=== PATIENT | female | born 1935 | race Caucasian/White ===

== ENCOUNTER → 2016-08-17 | Outpatient (CLI) | payer MEDICARE, MEDICAID ==
[~2016-08-17] MED LIST: CALC667C4 PO; DIGO125T82 PO; IOHEXOL-350 100 ML BOTTLE ONE; LEVO125T8 PO; METO-298 PO; OMEP20CA10 PO; PENT400T2 PO; PROVASTATIN SODIUM PO; SODIUM CHLORIDE 0.9% 10ML VIAL ONE; [UNRECOGNIZED DRUG - OTHER] PO
== END | disposition home or self-care (01) ==
LOC: CT 07:33
PROVIDERS: ATTEND Internal Medicine Cardiovascular Disease
DX: I70.213 Atherosclerosis of native arteries of extremities with intermittent claudication, bilateral legs (principal); M48.56XA Collapsed vertebra, not elsewhere classified, lumbar region, initial encounter for fracture; M85.88 Other specified disorders of bone density and structure, other site
CPT/HCPCS: 75635; A4216; Q9967

== ENCOUNTER 2017-06-03 11:18 | Emergency (ER) | payer MEDICARE, MEDICAID ==
[~2017-06-03] VITALS: Ht 152.4 cm; Wt 45.0 kg
[~2017-06-03 11:18] MED LIST changes: -CALC667C4 PO; -IOHEXOL-350 100 ML BOTTLE ONE; +LACT1CAP77 PO; -METO-298 PO; +METO-385 PO; -SODIUM CHLORIDE 0.9% 10ML VIAL ONE
[2017-06-03 14:03] LABS: BASOPHILS % 1.3 % (0.0-2.0); EOSINOPHILS % 8.2 % (0.0-5.0); HEMATOCRIT. 31.8 % (36.0-48.0); HEMOGLOBIN. 10.4 g/dL (12.0-16.0); LYMPHOCYTES % 13.9 % (20.0-50.0); MEAN CORPUSCULAR HEMOGLOBIN 30.3 pg (28.0-32.0); MEAN CORPUSCULAR VOLUME 92.8 fL (81.0-99.0); MEAN PLATELET VOLUME 9.9 fl (7.4-10.4); MONOCYTES % 9.6 % (2.0-8.0); RED BLOOD CELL COUNT 3.43 mill/uL (4.2-5.4); RED CELL DISTRIBUTION WIDTH 19.2 % (11.6-14.6)
[2017-06-03 14:12] LABS: PLATELET 47 x1000/uL (130-400)
[2017-06-03 15:23] LABS: PLATELET ESTIMATE MARKEDLY DECREASED
[2017-06-03 18:02] VITALS: BP 114/84
[2017-06-04] MEDS ORDERED: LEVO137T2 PO (18:41)
[2017-06-04] MEDS ORDERED: CLOP75TA33 PO (18:42)
[2017-06-04] MEDS ORDERED: PENT400T2 PO (18:43)
[2017-06-04] MEDS ORDERED: LOSA50TA20 PO (18:45)
[2017-06-04] MEDS ORDERED: SEVE800T8 PO (18:45)
[2017-06-04] MEDS ORDERED: METO-539 PO (18:46)
[2017-06-04] MEDS ORDERED: LOPE2TAB26 PO (18:48)
== END 2017-06-03 18:04 | disposition home or self-care (01) ==
LOC: ER 15:29
DX: R53.1 Weakness (principal); K59.00 Constipation, unspecified; E11.9 Type 2 diabetes mellitus without complications; E05.90 Thyrotoxicosis, unspecified without thyrotoxic crisis or storm; I12.9 Hypertensive chronic kidney disease with stage 1 through stage 4 chronic kidney disease, or unspecified chronic kidney disease; N18.9 Chronic kidney disease, unspecified; Z99.2 Dependence on renal dialysis
CPT/HCPCS: 36415; 74000; 80048; 85025; 99285